=== PATIENT | female | born 1985 | race African-American/Black ===

== ENCOUNTER 2024-06-27 13:26 | Outpatient (CLI) | payer MEDICAID | END 2024-06-27 13:27 | disposition short-term general hospital (02) | LOC: EMS 13:26 | DX: O24.012 Pre-existing type 1 diabetes mellitus, in pregnancy, second trimester (principal); O21.9 Vomiting of pregnancy, unspecified | CPT/HCPCS: A0425; A0427; A0999 ==

== ENCOUNTER 2024-08-02 07:11 | Outpatient (CLI) | payer MEDICAID | END 2024-08-02 23:59 | disposition short-term general hospital (02) | LOC: EMS 07:11 | PROVIDERS: ATTEND Emergency Medicine | DX: O99.891 Other specified diseases and conditions complicating pregnancy (principal); R11.2 Nausea with vomiting, unspecified; R03.0 Elevated blood-pressure reading, without diagnosis of hypertension | CPT/HCPCS: A0425; A0429; A0999 ==